=== PATIENT | female | born 1990 | race African-American/Black ===

== ENCOUNTER 2020-05-14 08:36 | Emergency (ER) | payer BC ==
[~2020-05-14] VITALS: Ht 160 cm; Wt 98.6 kg
[2020-05-14 09:38] LABS: CALCIUM 8.9 mg/dL (8.5-10.1); GFR 79.3; POTASSIUM 4.1 mmol/L (3.5-5.1)
--- NOTE | 2020-05-14 09:40 | RAD ---
Examination: CHEST AP ONLY History: Reason: sob, covid? / Spl. Instructions: / History: Comparison: None. Findings: AP portable upright frontal view of the chest was obtained. The cardiomediastinal silhouette is normal. Lungs are clear. There is no pneumothorax. No pleural effusion is appreciated. No acute bone abnormality. IMPRESSION: No acute cardiopulmonary process. Electronically signed by: Shreyas Veliz MD (05/14/2020 9:37 AM) [id number]
[2020-05-14 09:42] LABS: PREG TEST PT QUAL NEGATIVE (NEG)
[2020-05-14 09:44] LABS: ALBUMIN 3.2 g/dL (3.4-5.0); ALBUMIN/GLOBULIN RATIO 0.9 (1.0-1.7); C-REACTIVE PROTEIN 18.7 mg/L (0-3.3); TOTAL BILIRUBIN 0.1 mg/dL (0.2-1.0); TOTAL PROTEIN 6.6 g/dL (6.4-8.2)
[2020-05-14 09:51] LABS: BASO # 0.1 x10^3/uL (0.0-0.2); BASO % 1 % (0-3); EOS # 0.2 x10^3/uL (0.0-0.7); EOS % 4 % (0-3); HEMATOCRIT 39.6 % (36.0-47.0); HEMOGLOBIN 13.3 g/dL (12.0-15.5); LYMPH # 2.2 x10^3/uL (1.0-4.8); LYMPH % 40 % (24-48); MEAN CORPUSCULAR HEMOGLOBIN 30 pg (25-35); MEAN CORPUSCULAR HGB CONC 34 g/dL (31-37); MEAN CORPUSCULAR VOLUME 89 fL (79-100); MONO # 0.7 x10^3/uL (0.0-1.1); MONO % 12 % (0-9); NEUT # 2.4 x10^3/uL (1.8-7.7); NEUT % 42 % (31-73); PLATELET COUNT 296 x10^3/uL (140-400); RED BLOOD COUNT 4.44 x10^6/uL (3.50-5.40); RED CELL DISTRIBUTION WIDTH 14.6 % (11.5-14.5); WHITE BLOOD COUNT 5.6 x10^3/uL (4.0-11.0)
[2020-05-14 11:00] LABS: BILIRUBIN,URINE NEGATIVE (NEG); CLARITY,URINE CLEAR; COLOR,URINE YELLOW; NITRITE,URINE NEGATIVE (NEG); PROTEIN,URINE NEGATIVE (NEG-TRACE); UROBILINOGEN,URINE 0.2 mg/dL (0.2 mg/dL)
[2020-05-14 11:05] LABS: BACTERIA,URINE FEW /HPF (0-FEW); RBC,URINE OCC /HPF (0-2); SQUAMOUS EPITHELIAL CELL,UR MOD /LPF; WBC,URINE RARE /HPF (0-4)
[2020-05-14] MEDS ORDERED: NAPR-682 PO (11:22)
[2020-05-14 11:29] VITALS: BP 157/91
[2020-05-14] MEDS ORDERED: DEXAMETHASONE SOD PHOS 4 MG/ML VIAL PO ONE (11:30)
--- NOTE | 2020-05-14 11:55 | PHYS DOC ---
Past Medical History Past Medical History: No Pertinent History Past Surgical History: No Surgical History Smoking Status: Current Every Day Smoker Additional Information: 11/13 ppd Alcohol Use: None General Adult EDM: Chief Complaint: PLEURISY HPI: HPI: Patient is a 30 year old female who presents with left sided pleuritic chest pain. Patient states that this is been ongoing for the last couple of days. She denies any shortness of breath, cough, URI symptoms, fever, fatigue, body aches. Pain is worse with moving around her breathing. Pain gets better with rest. She has not tried to take anything for it at home. She is never had anything like this before. She has no medical problems. Review of Systems: Review of Systems: General: Denies fever, chills, sweats, fatigue Eyes: Denies drainage, blurred vision HENT: Denies rhinorrhea, sore throat Respiratory: Denies cough, shortness of breath, wheezing Cardiac: Denies edema, palpitations. Reports chest pain GI: Denies abdominal pain, N/V MSK: Denies back pain, neck pain Skin: Denies rash, jaundice Neuro: Denies headache, dizziness Psychiatric: Denies SI/HI Heart Score: Risk Factors: Risk Factors: DM, Current or recent (<one month) smoker, HTN, HLP, family his tory of CAD, obesity. Risk Scores: Score 0 - 3: 2.5% MACE over next 6 weeks - Discharge Home Score 4 - 6: 20.3% MACE over next 6 weeks - Admit for Clinical Observation Score 7 - 10: 72.7% MACE over next 6 weeks - Early Invasive Strategies Current Medications: Current Medications Medications (Trade) Dose Ordered Sig/Sushant Start Time Stop Time Status Last Admin Dose Admin Dexamethasone Sodium Phosphate (Decadron) 10 mg 1X ONCE 05/14/20 11:30 05/14/20 11:31 DC 05/14/20 11:39 10 MG Allergies: Allergies: Allergies Coded Allergies Type Severity Reaction Last Updated Verified No Known Drug Allergies 05/14/20 No Physical Exam: PE: Constitutional: Well developed, well nourished, Cooperative, NAD, non-toxic appearing HEENT: Normocephalic, atraumatic, oropharynx moist, EOMI, PERRL, no drainage from eyes, normal conjunctiva Neck: Supple, normal range of motion, no stridor Cardiovascular: RRR, 2+ radial pulses bilaterally, no edema Respiratory: CTA bilaterally, no respiratory distress, no wheezing/crackles Abdomen: Soft, nontender, nondistended, no masses Skin: Warm, dry, intact Extremities: No obvious deformities Neurologic: Alert and Oriented x3, motor and sensory function grossly normal, no focal deficits Psychologic: Normal affect, normal judgment, normal mood. No SI/HI Current Patient Data: Labs: Laboratory Tests Test 05/14/20 09:15 05/14/20 10:40 White Blood Count 5.6 x10^3/uL (4.0-11.0) Red Blood Count 4.44 x10^6/uL (3.50-5.40) Hemoglobin 13.3 g/dL (12.0-15.5) Hematocrit 39.6 % (36.0-47.0) Mean Corpuscular Volume 89 fL (79-100) Mean Corpuscular Hemoglobin 30 pg (25-35) Mean Corpuscular Hemoglobin Concent 34 g/dL (31-37) Red Cell Distribution Width 14.6 % (11.5-14.5) H Platelet Count 296 x10^3/uL (140-400) Neutrophils (%) (Auto) 42 % (31-73) Lymphocytes (%) (Auto) 40 % (24-48) Monocytes (%) (Auto) 12 % (0-9) H Eosinophils (%) (Auto) 4 % (0-3) H Basophils (%) (Auto) 1 % (0-3) Neutrophils # (Auto) 2.4 x10^3/uL (1.8-7.7) Lymphocytes # (Auto) 2.2 x10^3/uL (1.0-4.8) Monocytes # (Auto) 0.7 x10^3/uL (0.0-1.1) Eosinophils # (Auto) 0.2 x10^3/uL (0.0-0.7) Basophils # (Auto) 0.1 x10^3/uL (0.0-0.2) D-Dimer (Ivelisse) < 0.27 ug/mlFEU Sodium Level 142 mmol/L (136-145) Potassium Level 4.1 mmol/L (3.5-5.1) Chloride Level 108 mmol/L (98-107) H Carbon Dioxide Level 26 mmol/L (21-32) Anion Gap 8 (6-14) Blood Urea Nitrogen 17 mg/dL (7-20) Creatinine 1.0 mg/dL (0.6-1.0) Estimated GFR (Cockcroft-Gault) 79.3 BUN/Creatinine Ratio 17 (6-20) Glucose Level 96 mg/dL (70-99) Calcium Level 8.9 mg/dL (8.5-10.1) Total Bilirubin 0.1 mg/dL (0.2-1.0) L Aspartate Amino Transferase (AST) 23 U/L (15-37) Alanine Aminotransferase (ALT) 32 U/L (14-59) Alkaline Phosphatase 62 U/L (46-116) Lactate Dehydrogenase 233 U/L (81-234) Creatine Kinase 125 U/L (26-192) C-Reactive Protein, Quantitative 18.7 mg/L (0-3.3) H Total Protein 6.6 g/dL (6.4-8.2) Albumin 3.2 g/dL (3.4-5.0) L Albumin/Globulin Ratio 0.9 (1.0-1.7) L Serum Test, Qualitative Negative (NEG) Urine Collection Type Unknown Urine Color Yellow Urine Clarity Clear Urine pH 6.0 (<5.0-8.0) Urine Specific [place] >=1.030 (1.000-1.030) Urine Protein Negative mg/dL (NEG-TRACE) Urine Glucose (UA) Negative mg/dL (NEG) Urine Ketones (Stick) Negative mg/dL (NEG) Urine Blood Negative (NEG) Urine Nitrite Negative (NEG) Urine Bilirubin Negative (NEG) Urine Urobilinogen Dipstick 0.2 mg/dL (0.2 mg/dL) Urine Leukocyte Esterase Negative (NEG) Urine RBC Occ /HPF (0-2) Urine WBC Rare /HPF (0-4) Urine Squamous Epithelial Cells Mod /LPF Urine Bacteria Few /HPF (0-FEW) Urine Mucus Marked /LPF Laboratory Tests 05/14/20 09:15 Laboratory Tests 05/14/20 09:15 Vital Signs: Vital Signs Date Time Temp Pulse Resp B/P (MAP) Pulse Ox O2 Delivery O2 Flow Rate FiO2 05/14/20 08:58 98.0 85 20 149/89 (109) 100 Room Air 98.0 EKG: EKG: [] Radiology/Procedures: Radiology/Procedures: [] Course & Med Decision Making: Course & Med Decision Making Pertinent Labs and Imaging studies reviewed. (See chart for details) Patient is a 30-year-old female presents the emergency room with pleuritic chest pain. Patient is overall well-appearing. Lab work and chest x-ray were ordered to evaluate for causes of pleuritic chest pain including novel coronavirus 19, pneumothorax, pneumonia, pulmonary embolism. D-dimer was negative. Lab work was normal. Chest x-ray is negative. It is unlikely given her symptoms that this is due to coronavirus. She likely has pleurisy. We will treat her with high-dose anti-inflammatories and have her follow-up with her primary care physician. Patient's test results and vitals while in the ED were fully reviewed and discussed with the patient. Patient is stable and at this time does not need admission to the hospital. We have discussed strict return precautions and the importance of following up with their Primary Care Physic aviva. Patient stated understanding and was given an opportunity to ask any questions. Usha Disclaimer: Usha Disclaimer: This electronic medical record was generated, in whole or in part, using a voice recognition dictation system. Departure Departure Impression: Primary Impression: Pleurisy Disposition: HOME, SELF-CARE Condition: GOOD Patient Instructions: Pleurisy Scripts Naproxen Sodium (ANAPROX DS) 550 Mg Tablet 1 TAB PO BID for 15 Days, #30 TAB 0 Refills Prov: PEPE ACOSTA MD 05/14/20 Justicifation of Admission Dx: Justifications for Admission: Justification of Admission Dx: No PEPE ACOSTA MD May 14, 2020 11:55
== END 2020-05-14 11:45 | disposition home or self-care (01) ==
LOC: ER 08:36
DX: R09.1 Pleurisy (principal); F17.200 Nicotine dependence, unspecified, uncomplicated
CPT/HCPCS: 36415; 71045; 80053; 81001; 82550; 83615; 84703; 85025; 85379; 86140; 99284; J1100

== ENCOUNTER → 2021-06-10 | Outpatient (CLI) | payer BC ==
[~2021-06-10] MED LIST: LIDOCAINE 1% Multi-Dose 20 ML VIAL. INJ ONE; NAPR-682 PO
--- NOTE | 2021-06-10 11:11 | RAD ---
US FNA BIOPSY 1ST LESION History:Reason: RT THYROID NODULE / Spl. Instructions: / History: Comparison: April 28, 2021 Procedure: The risks, alternatives, and benefits of the procedure are discussed with the patient. Written inform ed consent is obtained. A time out procedure is performed. Right mid hypoechoic solid nodule unchanged in size compared to prior. Additional nodules more inferior are unchanged in size compared to prior. Solid predominantly isoecho ic nodule within the right inferior thyroid with cystic component. Neck prepped and draped in normal sterile fashion. 1% lidocaine was injected into the skin and soft tissue along route to the nodule of the thyroid. 4 s eparate passes were made with a 22-gauge needle. To and fro movement of the needle was performed in t he nodule. Hemostasis is achieved. The patient tolerated the procedure well. There is no immediate co mplication. IMPRESSION: 1. Ultrasound guided fine needle aspiration of a right mid thyroid nodule. 2. Additional TI-RADS 3 right inferior thyroid nodules. Recommend one-year ultrasound follow-up. Electronically signed by: Gregory Askew DO (06/10/2021 11:08 AM) [id number]
--- NOTE | 2021-06-14 15:08 | PATHOLOGY ---
Note [facility] Accession Number: [id number] TESTS RESULT FLAG UNITS REF RANGE LAB Clinician Provided Cytology Information No. of containers..01 Other (Miscellaneous) Source: RIGHT MID THY DIAGNOSIS: RIGHT MID THY SUSPICIOUS FOR NEOPLASM. B[place]ESDA CATEGORY IV. HURTHLE CELL NEOPLASM. SPECIMEN CONSISTS OF ABUNDANT HURTHLE CELLS IN SMALL CLUSTERS WITH ABSENCE OF COLLOID. Pathologist ICD10: 02 D34 Signed out by: 02 Randall Maharaj MD, Pathologist NPI- [id number] Performed by: Traci Cardenas Anode Adjuster ([facility]) Gross description: 01 30ML, CLEAR PINK, 2H 2F 2A /LCS 06/14/2021 0017 Local FLAG LEGEND: L-Low Normal,H-High Normal,LL-Alert Low,HH-Alert High <-Panic Low,>-Panic High,A-Abnormal,AA-Critical Abnormal Performed at: [facility] [place] [address] Davide Valencia MD, [facility] [address] [address] Randall Maharaj MD, Performed at: [address] [place] [id number] MD Davide Valencia MD Phone: [phone]
== END | disposition home or self-care (01) ==
LOC: US 09:50
PROVIDERS: ATTEND Otolaryngology
DX: E04.1 Nontoxic single thyroid nodule (principal); F17.210 Nicotine dependence, cigarettes, uncomplicated; Z79.899 Other long term (current) drug therapy
CPT/HCPCS: 10005

== ENCOUNTER 2021-09-07 01:46 | Emergency (ER) | payer BC ==
[~2021-09-07] VITALS: Ht 160 cm; Wt 109.0 kg
[~2021-09-07 01:46] MED LIST changes: -LIDOCAINE 1% Multi-Dose 20 ML VIAL. INJ ONE
[2021-09-07 02:13] LABS: BASO # 0.1 x10^3/uL (0.0-0.2); BASO % 2 % (0-3); EOS # 0.1 x10^3/uL (0.0-0.7); EOS % 1 % (0-3); HEMATOCRIT 38.9 % (36.0-47.0); HEMOGLOBIN 13.1 g/dL (12.0-15.5); LYMPH # 3.1 x10^3/uL (1.0-4.8); LYMPH % 45 % (24-48); MEAN CORPUSCULAR HEMOGLOBIN 30 pg (25-35); MEAN CORPUSCULAR HGB CONC 34 g/dL (31-37); MEAN CORPUSCULAR VOLUME 88 fL (79-100); MONO # 0.8 x10^3/uL (0.0-1.1); MONO % 12 % (0-9); NEUT # 2.9 x10^3/uL (1.8-7.7); NEUT % 41 % (31-73); PLATELET COUNT 371 x10^3/uL (140-400); RED BLOOD COUNT 4.42 x10^6/uL (3.50-5.40); RED CELL DISTRIBUTION WIDTH 14.4 % (11.5-14.5); WHITE BLOOD COUNT 7.1 x10^3/uL (4.0-11.0)
--- NOTE | 2021-09-07 02:18 | PHYS DOC ---
Past Medical History Past Medical History: No Pertinent History (SHELTON WISDOM DO) Past Surgical History: No Surgical History (SHELTON WISDOM DO) Smoking Status: Current Every Day Smoker Alcohol Use: None (SHELTON WISDOM DO) General Adult EDM: Chief Complaint: OVERDOSE HPI: HPI: 31-year-old obese -Emirati female, past medical history PTSD, generalized anxiety disorder and depression, presents to the ED with complaints of medication overdose stating she has not been able to sleep in the past 3 days, c/o dizziness and nausea. . Reports around 1:00am she took approximately 4 tablets of Xanax, 3 to 4 tablets of Lexapro 20 mg, and approximately 10 tablets of Flexeril (flexeril was prescribed to a friend who left it in her car). Also states she had a headache around 11 PM and took to 800 mg of ib uprofen. Denies having suicidal ideations and was not attempting to end her life. States she does have a history of suicide attempt at 17 years old that she was seen for [facility], no inpatient psych admission. Has a history of seizures from Xanax withdrawal. No history of COVID and has not been vaccinated for Covid. Currently vapes but denies any alcohol or IV drug use, no illicit drug use including meth or cocaine. Last menstrual period was last month. History of thyroidectomy. States she couldn't sleep so she went for a drive and took the pills while driving. Has a history of insomnia-has not been prescribed any sleep aids. Denies any other coingestions or [id number] medications including Tylenol. (SHELTON WISDOM DO) Review of Systems: Review of Systems: Constitutional: Denies fever or chills. [] Eyes: Denies change in visual acuity. [] HENT: Denies nasal congestion or sore throat. [] Respiratory: Denies cough or shortness of breath. [] Cardiovascular: Denies chest pain or edema. [] GI: Denies abdominal pain, vomiting, bloody stools or diarrhea. [] : Denies dysuria or vaginal discharge Musculoskeletal: Denies back pain or joint pain. [] Integument: Denies rash or diaphoresis Neurologic: Denies headache, neck stiffness or tremors Endocrine: Denies polyuria or polydipsia. [] Lymphatic: Denies swollen glands. [] Psychiatric: Denies depression or anxiety. [] (SHELTON WISDOM DO) Heart Score: C/O Chest Pain: No Risk Factors: Risk Factors: DM, Current or recent (<one month) smoker, HTN, HLP, family history of CAD, obesity. Risk Scores: Score 0 - 3: 2.5% MACE over next 6 weeks - Discharge Home Score 4 - 6: 20.3% MACE over next 6 weeks - Admit for Clinical Observation Score 7 - 10: 72.7% MACE over next 6 weeks - Early Invasive Strategies (SHELTON WISDOM DO) C/O Chest Pain: N/A (LSIA SANCHEZ DO) Allergies: Allergies: Allergies Coded Allergies Type Severity Reaction Last Updated Verified No Known Drug Allergies 05/14/20 No (SHELTON WISDOM DO) Physical Exam: PE: Constitutional: Well developed, well nourished, no acute distress, non-toxic dale earance. HENT: Normocephalic, atraumatic, moist mucous membranes Eyes: mydriatic pupils, PERRLA, EOMI, conjunctiva normal, no discharge. Neck: Normal range of motion, supple, Cardiovascular: S1/2 present, regular rhythm Lungs & Thorax: Speaking in full sentences, bilateral equal chest rise, no tachypnea or increased work of breathing Abdomen: soft, no tenderness, Skin: Warm, dry, no erythema, no rash. [] Back: No tenderness, no CVA tenderness. [] Extremities: No tenderness, no cyanosis, no clonus or tremors Neurologic: Alert and oriented X 3, normal motor function, normal sensory function, no focal deficits noted. [] Psychologic: Affect normal, judgement normal, mood normal. [] (SHELTON WISDOM DO) EKG: EKG: Sinus tachycardia 115 bpm, no axis deviation, normal intervals, Q-wave lead III, no ST elevation or ST depression, no T wave inversion, no active chest pain (SHELTON WISDOM DO) Radiology/Procedures: Radiology/Procedures: [] (SHELTON WISDOM DO) Course & Med Decision Making: Course & Med Decision Making Pertinent Labs and Imaging studies reviewed. (See chart for details) Concern for insomnia and intentional medication overdose secondary to insomnia, denies any suicidal thoughts. RN spoke to poison control who recommended monitoring for 6 hours (7am) for signs of anticholinergic syndrome or serotonin syndrome. IVFs for tachycardia. PAT team consultation pending. Due to shift change patient was signed out to oncoming physician Dr. Sanchez for further medical evaluation disposition. (SHELTON WISDOM DO) Course & Med Decision Making Patient is a 31-year-old female who was evaluated in the ER due to drug overdose. Patient denies suicidal ideation denies homicidal ideation. Patient was evaluated by psychiatric assessment team, denies suicidal ideation denies most ideation, Recommended to discharge patient home with safety plan. Patient was observed here for more than 5 hours without any problem. Patient will be discharged home (LISA SANCHEZ DO) Dragon Disclaimer: Dragon Disclaimer: This electronic medical record was generated, in whole or in part, using a voice recognition dictation system. (SHELTON WISDOM DO) Departure Departure Impression: Primary Impression: Medication overdose Additional Impression: Insomnia Disposition: 01 HOME / SELF CARE / HOMELESS Condition: STABLE Referrals: NO PCP (PCP) Follow up with [facility] [address] [address] 24-HOUR Crisis Line: [phone] Patient Instructions: Insomnia, Overdose, Accidental SHELTON WISDOM DO Sep 07, 2021 02:18 LISA SANCHEZ DO Sep 07, 2021 07:34
[2021-09-07 02:22] LABS: CALCIUM 8.7 mg/dL (8.5-10.1); CREATININE 0.8 mg/dL (0.6-1.0); GFR 101.9; POTASSIUM 3.6 mmol/L (3.5-5.1)
[2021-09-07 02:26] LABS: ACETAMIN < 2 mcg/ml (10-30); ETHANOL < 10 mg/dL (0-10); SALIC 0.4 mg/dL (2.8-20.0)
[2021-09-07 02:27] LABS: ALBUMIN 3.5 g/dL (3.4-5.0); DIRECT BILIRUBIN 0.1 mg/dL (0.0-0.2); TOTAL BILIRUBIN 0.3 mg/dL (0.2-1.0); TOTAL PROTEIN 7.4 g/dL (6.4-8.2)
[2021-09-07] MEDS ORDERED: ONDANSETRON PF 4 MG/2 ML VIAL. IVP ONE (02:30)
[2021-09-07 02:31] LABS: PREG TEST PT QUAL NEGATIVE (NEG)
[2021-09-07 04:06] LABS: BILIRUBIN,URINE NEGATIVE (NEG); CLARITY,URINE CLEAR; COLOR,URINE YELLOW; NITRITE,URINE NEGATIVE (NEG); PROTEIN,URINE NEGATIVE (NEG-TRACE); UROBILINOGEN,URINE 0.2 mg/dL (0.2 mg/dL)
[2021-09-07 04:10] LABS: BARBITURATES NEG (NEG); BENZODIAZEPINES POS (NEG); CANNABINOIDS NEG (NEG); COCAINE NEG (NEG); METHADONE NEG (NEG); OPIATES NEG (NEG); PHENCYCLIDINE NEG (NEG)
[2021-09-07 04:11] LABS: AMPHETAMINE/METHAMPHETAMINE NEG (NEG)
[2021-09-07 04:14] LABS: BACTERIA,URINE 0 /HPF (0-FEW); RBC,URINE 0 /HPF (0-2); WBC,URINE RARE /HPF (0-4)
--- NOTE | 2021-09-07 05:05 | EKG ---
[facility] [address] [place] [address] Test Date: 2021-09-07 Test Time: 01:58:51 Pat Name: VALDEMAR TONG Department: Room: Gender: F Senior Accounting Associate: : 1990 Requested By: SHELTON WISDOM Order Number: [id number] Reading MD: Dre Younger Measurements Intervals [place] Rate: 115 P: 29 WY: 138 QRS: 28 QRSD: 78 T: 20 QT: 318 QTc: 442 Interpretive Statements SINUS TACHYCARDIA Electronically Signed On 09-07-2021 15:54:59 CDT by Dre Younger
[2021-09-07 06:00] VITALS: BP 131/78
[2021-09-07] MEDS ORDERED: IV NORMAL SALINE 1000ML BAG 1,000 ML IV ONE ×2 (06:00)
--- NOTE | 2021-09-07 06:51 | RAD ---
EXAM: CHEST 1 VIEW History: Medication overdose COMPARISON: None available. TECHNIQUE: Single portable radiograph of the chest FINDINGS: The cardiac silhouette is unremarkable. The lungs are clear bilaterally. The costophrenic sulci are clear and well demarcated. IMPRESSION: No radiographic evidence of an acute cardiopulmonary process. Electronically signed by: Ben Abdullahi MD (09/07/2021 6:48 AM) [id number]
--- NOTE | 2021-09-07 16:59 | NUR ---
IP: Informed pt of negative covid test. Pt verbalized understanding.
== END 2021-09-07 10:30 | disposition home or self-care (01) ==
LOC: ER 01:46
DX: T65.91XA Toxic effect of unspecified substance, accidental (unintentional), initial encounter (principal); Z20.822 Contact with and (suspected) exposure to COVID-19; G47.00 Insomnia, unspecified; F43.10 Post-traumatic stress disorder, unspecified; F17.200 Nicotine dependence, unspecified, uncomplicated; Y92.89 Other specified places as the place of occurrence of the external cause
CPT/HCPCS: 36415; 71045; 80048; 80076; 80307; 80329; 81001; 82550; 84703; 85025; 87426; 93005; 96361; 96374; 99285; G0480; J2405; J7030; U0003; U0005